=== PATIENT | female | born 1950 | race Caucasian/White ===

== ENCOUNTER 2021-01-06 13:08 | Outpatient (CLI) | payer MEDICARE, SELFPAY ==
--- NOTE | ~2021-01-06 | DEXA_ITS ---
Bone Density Report Name: Sarah Curry V Age: 70 Sex: Female Ethnicity: White Date of : 1950 Indication: osteopenia; parental hip fracture; height loss; prior fracture; postmenopausal Referring Provider: MAULIK MOONEY Study: Bone densitometry was performed. Exam Date: January 06, 2021 Accession number: [id number] Bone Density: Region BMD T-score Z-score Classification AP Spine (L1-L4) 0.741 -2.8 -0.7 Osteoporosis Femoral Neck (Left) 0.641 -1.9 -0.1 Osteopenia Total Hip (Left) 0.881 -0.5 1.0 Normal Total Hip Bilateral Avg 0.864 -0.7 0.8 Normal Femoral Neck (Right) 0.652 -1.8 0.0 Osteopenia Total Hip (Right) 0.847 -0.8 0.7 Normal World Health Organization criteria for BMD impression classify patients as: Normal (T-score at or above -1.0), Osteopenia (T-score between -1.0 and -2.5), or Osteoporosis (T-score at or below -2.5). 10-year Fracture Risk: FRAX not reported because: Some T-score for Spine Total or Hip Total or Femoral Neck at or below -2.5 Previous Exams: Region Exam Age BMD T-score BMD Change BMD Change Date g/cm2 vs Baseline vs Previous AP Spine(L1-L4) 01/06/2021 70 0.741 -2.8 -0.054(-6.7%)# -0.050(-6.3%)* 11/16/2017 67 0.792 -2.3 -0.003(-0.4%)# 0.010(1.3%) 10/25/2015 64 0.781 -2.4 -0.014(-1.7%)# -0.014(-1.7%)# 05/30/2012 61 0.795 -2.3 Total Hip(Left) 01/06/2021 70 0.881 -0.5 0.072(8.9%)# 0.068(8.3%)* 11/16/2017 67 0.814 -1.1 0.004(0.5%)# 0.008(1.0%) 10/25/2015 64 0.805 -1.1 -0.004(-0.5%)# -0.004(-0.5%)# 05/30/2012 61 0.809 -1.1 Total Hip(Right) 01/06/2021 70 0.847 -0.8 0.033(4.0%)# 0.080(10.4%)* 11/16/2017 67 0.767 -1.4 -0.047(-5.8%)# -0.058(-7.0%)* 10/25/2015 64 0.825 -1.0 0.010(1.3%)# 0.010(1.3%)# 05/30/2012 61 0.814 -1.0 *Denotes significance at 95% confidence level, LSC for AP Spine = 0.022 g/cm2, LSC for Total Hip = 0.027 g/cm2 Clinical Information Provided by Patient: Has had a low trauma fracture Parent has had a hip fracture Has used the following medications: Vitamin D, Calcium Patient maximum height was 65 Menopause Age: 52 Drinks caffeinated beverages Onset of menses at age 12 Number of children 1 Impression: The patient has established osteoporosis, based on the Total Spine T-score and the existence of a prior fracture. The patient has risk factors, including: parental hip fracture, previous fracture. The BMD for the AP Spine(L1-L4
== END 2021-01-06 13:09 | disposition home or self-care (01) ==
PROVIDERS: Family Provider Family Medicine Adolescent Medicine; PCP Family Medicine Adolescent Medicine; Visit Provider Obstetrics & Gynecology
DX: M85.89 Other specified disorders of bone density and structure, multiple sites (principal); M81.0 Age-related osteoporosis without current pathological fracture
CPT/HCPCS: 77080

== ENCOUNTER 2022-02-26 10:28 | Outpatient (CLI) | payer MEDICARE, SELFPAY ==
[2022-02-26 11:30] LABS: Vitamin D 25 Hydroxy 49.1 ng/mL
== END 2022-02-26 10:29 | disposition home or self-care (01) ==
PROVIDERS: PCP Family Medicine Adolescent Medicine; Visit Provider Obstetrics & Gynecology
DX: M81.0 Age-related osteoporosis without current pathological fracture (principal)
CPT/HCPCS: 36415; 82306

== ENCOUNTER → 2022-10-14 10:30 | Outpatient (CLI) | payer MEDICARE, SELFPAY ==
--- NOTE | ~2022-10-14 | US_ITS ---
EXAMINATION: US pelvic complete w TV DATE: 10/14/2022 11:05 INDICATION: ABN DISCHARGE, FAM HX OF [place] CA , history of right oophorectomy for teratoma. TECHNIQUE: Multiple transabdominal and endovaginal sonographic images of the pelvis were obtained. COMPARISON: None. FINDINGS: Uterus: 5.3 x 2.3 x 2.8 cm. Endometrium is somewhat poorly visualized and partially obscured by adjac ent air-filled loop of bowel. Endometrial complex measures 2 mm. Right Ovary: Not visualized partially obscured by bowel gas. Left Ovary: Not well visualized, no adnexal mass. There is no free fluid in the pelvis. IMPRESSION: Limited examination. Consider evaluation with pelvic MR. Reviewed, dictated and finalized at location [facility]
== END ==
PROVIDERS: PCP Obstetrics & Gynecology; Visit Provider Obstetrics & Gynecology
DX: N89.8 Other specified noninflammatory disorders of vagina (principal)
CPT/HCPCS: 76830; 76856

== ENCOUNTER 2025-03-23 00:55 | Day surgery (SDC) | payer MEDICARE, SELFPAY ==
[2025-03-16 13:22] VITALS: BMI 24.0
--- OUTSIDE RECORDS SUMMARY | 2025-03-23 00:58 | XMS_ITS | Encounter Summary ---
Author Organization [facility] Address [address] [place] [address] Care Team Providers Care Social Sciences Department Chair Name Role Phone Tone Rebolledo MD Primary Care Prov ider Reason for Visit * Diagnostic Imaging (Routine) - Pending Review Specialty Diagnoses / Procedures Referred By Brad ortez Referred To Contact Procedures Breast Imaging Screening Outside Reference Jacobo Resendiz MD Phone: tel: fax: Referral ID Status Reason Start Date Expiration Date V isits Requested Visits Authorized [id number] Pending Review 01/17/2025 02/16/2026 1 1 Encounter Details Date Type Department Care Team (Late st Contact Info) Description 02/28/2021 Hospital Encounter [facility] [id number] [place] [id number] Social History Tobacco Use Types Packs/Day Years Used Date Smoking Tobacco: Former Cigarettes 0.1 10 0 11/08/1970 - 11/08/1980 Smokeless Tobacco: Never AUDIT-C Answer Date Recorded Q1: How often do you have a drink containing alc ohol? 2-3 times a week 09/11/2022 Q2: How many drinks containi ng alcohol do you have on a typical day when you are drinking? 1 or 2 09/11/2022 Q3: How often do you have si x or more drinks on one occasion? Never 09/11/2022 PHQ-2 Answer Date Recorded PHQ-2 Total Score (If total score is 3 or more points, staff should administer the PHQ-9) 0 12/28/2024 Comments No Sex and Gender Information Value Date Recorded Sex Assigned at Not on file Legal Sex Female 9:54 AM [employer]ERTY CONSULT[employer] Gender Identity Not on file Sexual Orientation Not on file documented as of this encounter Functional Status * Audit-C Score Answer Date of Assessment Author 3 09/11/2022 10:58 AM TENAT Ameena Huff MD * Question Answer Date of Assessment Author Q1: How often do you have a drink containing alcohol? 2-3 times a week 09/11/2022 10:58 AM Ameena Meredith MD Q2: How many drinks containing alcohol do you have on a typical day when you are drinking? 1 or 2 09/11/2022 10:58 AM TENAT Ameena Mike MD Q3: How often do you have six or more drinks on one occasion? Never 09/11/2022 10:58 AM Ameena Meredith MD documented as of this encounter Plan of Treatment Not on file documented as of this encounter Procedures Procedure Name Priority Date/Time Associated Diagnosis Comments BREAST IMAGING MG SCREENING OUTSIDE REFERENCE Routine 02/28/2021 12:00 AM CDT documented in this encounter Results * Breast Imaging Screening Outside Reference (02/28/2021 12:00 AM CDT) Impressions [facility] - 01/17/2025 1:36 PM CDT These images are for Reference purposes only and have not been reviewed by [facility]. There will be no report generated by a [facility] Radiologist. Narrative [facility] - 01/17/2025 1:36 PM CDT EXAMINATION: Images For Reference Purposes Only us Jacobo Resendiz MD IMG MAMMO PROCEDURES Fi nal Result [facility] documented in this encounter Visit Diagnoses Not on filedocumented in this encounter Care Teams Social Sciences Department Chair Relationship Specialty Start Date End Date Tone Rebolledo MD [address] [place] [address] PCP - General 03/08/17 09/02/21 documented as of this encounter
--- OUTSIDE RECORDS SUMMARY | 2025-03-23 00:58 | XMS_ITS | Referral Summary ---
Author Organization [facility] Address [address] [place] [address] Care Team Providers Care Animal Care Worker Name Role Phone Jacobo Resendiz MD Primary Care Provider Jerica Wheeler MD Unavailable [phone] Leon Chou MD Unavailable Encounters Date Type Department Care Team Description 02/07/2025 10:30 AM CDT Infusion [facility] [address] [place] [address] Age-related osteoporosis without current pathological fracture (Primary Dx) 01/22/2025 Results Follow-Up [facility] [place] [address] [place] [address] Jacobo Resendiz MD 01/12/2025 Telephone [facility] [address] Office [address] [place] [id number] Jerica Wheeler MD Treatment Plan Update (New reclast) 01/12/2025 10:54 AM HAND CLOTH EXAMINER - 01/12/2025 11:59 PM HAND CLOTH EXAMINER Hospital Encounter [facility] [address] [place] [address] [address] [place] [address] Screening mammogram, encounter for Discharge Disposition: Discharge to home or self care 01/12/2025 11:30 AM HAND CLOTH EXAMINER Clinical Support [address] [place] [address] Age-related osteoporosis without current pathological fracture 01/12/2025 12:00 PM HAND CLOTH EXAMINER Office Visit [address] [place] [address] Jerica Wheeler MD Age-related osteoporosis without current pathological fracture (Primary Dx); Bone loss 12/29/2024 Results Follow-Up [facility] Primary Care at [address] [address] Jacobo Resendiz MD 12/28/2024 9:29 AM HAND CLOTH EXAMINER - 12/28/2024 11:59 PM HAND CLOTH EXAMINER Hospital Encounter [address] [address] Age-related osteoporosis without current pathological fracture; Preventative health care; Need for hepatitis B screening test Discharge Disposition: Discharge to home or self care 12/28/2024 9:30 AM HAND CLOTH EXAMINER Lab [facility] Outpatient Lab at [address] [address] Preventative health care (Primary Dx) 12/28/2024 8:30 AM HAND CLOTH EXAMINER Office Visit [facility] Primary Care at [address] [address] Jacobo Resendiz MD Preventative health care (Primary Dx); Age-related osteoporosis without current pathological fracture; Mixed stress and urge incontinence; Bilateral hearing loss, unspecified hearing loss type; History of colon polyps; Need for hepatitis B screening test from Last 3 Months Allergies Active Allergy Reactions Criticality Noted Date Comments Nalidixic Acid Itching Low 09/03/2021 Sulfa (Sulfonamide Antibiotics) Itching Low Medications ibandronate (BONIVA) 150 mg tabletIndications :Age-related osteoporosis without current pathological fracture Take 1 tablet (150 mg total) by mouth every 30 (thirty) days Take in AM with glass of water prior to food, don't lie down for 30 minutes. 3 tablet 4 01/19/2024 Active CALCIUM ORAL Take by mouth Active cholecalciferol, vitamin D3, (VITAMIN D3 ORAL) Take 1,000 Units by mouth Active Active Problems Problem Noted Date Diagnosed Date Preventative health care 12/28/2024 Assessment & Plan (12/29/2024 9:35 AM HAND CLOTH EXAMINER): - New or chronic worsening conditions: no significant acute issues on this visit - Mental health: no significant psychiatric/mental health conditions affecting her day to day functioning - Dental health: Recommend regular dental care and cleaning. Discussed importance of regular tooth brushing, flossing, and dental visits. - Nutrition: Recommend moderation in sodium/caffeine intake, saturated fat and cholesterol, caloric balance, sufficient intake of fresh fruits, vegetables - Exercise: Recommend to exercise at least 30 minutes moderate to vigorous exercise most days of the week. (minimum 150 minutes weekly) - Immunizations: Age and sex appropriate immunizations reviewed and offered - Cervical Cancer screening: not indicated - Breast Cancer screening: due, scheduled for 01/2025 - Colon cancer screening: past due, referral placed to GI for colonoscopy - Lung cancer screening: not indicated - Bone desnity/osteoporosis screening:Up to date, next scheduled for 01/2025 - control: post-menopausal History of colon polyps 12/28/2024 Assessment & Plan (12/29/2024 9:35 AM HAND CLOTH EXAMINER): - past due for repeat colonoscopy - last Colonosocpy was 10/2021, had - due for repeat in 3 years so past due - referral placed to GI for repeat colonoscopy Colonoscopy 10/2021 Impression: - One 20 mm polyp in the ascending colon, removed with a hot snare. Resected and retrieved. Clip (MR conditional) was placed. - One 5 mm polyp in the ascending colon, removed with a cold snare. Resected and retrieved. - Non-bleeding internal hemorrhoids. Recommendation: - Repeat colonoscopy in 3 years for surveillance. Bilateral hearing loss 12/28/2024 Assessment & Plan (12/28/2024 11:45 AM HAND CLOTH EXAMINER): - chronic condition - wears heairng aids in both ears Mixed stress and urge incontinence 12/28/2024 Assessment & Plan (12/29/2024 9:36 AM HAND CLOTH EXAMINER): - chronic condition, mild - has stress incontinence to cough/sneeze and some urgency - managed by self, does not affect quality of life significantly -Consider referral to urology or pelvic floor physical therapy if symptoms worsen or impact quality of life. Age-related osteoporosis wit hout current pathological fracture 09/11/2022 Overview (12/28/2024): Follows with Bone health Assessment & Plan (12/28/2024 8:59 AM HAND CLOTH EXAMINER): - chronic condition - follows with Bone health - she had osteopenia, did not want to take medications for many years and eventually got Osteoporosis, finally decided to take Boniva - then she saw Bone health speciality and has been on Ibandronate since then - currently on Boniva 150 mg monthly - she is hoping to get off the medication soon - last DEXA 09/2023 and has repeat scheduled for 01/2025 - continue current management per bone health specility Resolved Problems Problem Noted Date Diagnosed Date Resolved Date Fever 03/24/2024 12/28/2024 Assessment & Plan (03/24/2024 7:29 PM CDT): Unknown origin. UA negative for leuks /nit, small blood, sp gr 1.030, consider dehydration. Patient advised to go to nearest ER. She declined transport, states that her , whom is waiting in the car, would take her. Unable to send UCx because patient had low volume when we collected her urine. Borderline high cholesterol 09/11/2022 12/28/2024 Immunizations Immunization Administration Dates Next Due COVID-19 mRNA (InDMusic) 0.3 m L (30 mcg) vaccine (12 years and up) 09/09/2024 Influenza, Quadrivalent, Hig h Dose, Preservative Free, Intrr 08/18/2023,08/08/2022,07/31/2021,08/28 Influenza, Trivalent, High D ose, Split, Preservative Free, Intramuscular 08/15/2019,11/15/2017 Influenza, Trivalent, Preser vative Free, Intramuscular 09/27/2016,11/28/2013 Influenza, Unspecified 09/09/2024 Pneumococcal Conjugate PCV 13 09/27/2016 Pneumococcal Polysaccharide PPV23 11/15/2017 RSV Vaccine, Pref, Recombina nt, Subunit, Adjuvanted, PF, IM (Arexvy) 08/18/2023 Tdap 12/01/2021 ZOSTER LIVE 12/12/2016 ZOSTER Recombinant 10/17/2019,08/17/2019, 019 Social History Tobacco Use Types Packs/Day Years Used Date Smoking Tobacco: Former Cigarettes 0.1 10 0 11/08/1970 - 11/08/1980 Smokeless Tobacco: Never Tobacco Cessation:Counseling Given: Not Answered AUDIT-C Answer Date Recorded Q1: How often [...] on file Legal Sex Female 9:54 AM HAND CLOTH EXAMINER Gender Identity Not on file Sexual Orientation Not on file Last Filed Vital Signs Vital Sign Reading Time Taken Comments Blood Pressure 106/85 02/07/2025 10:40 AM CDT Pulse 60 02/07/2025 10:40 AM CDT Temperature 36.4 C (97.5 F) 02/07/2025 10:40 AM CDT Respiratory Rate 18 02/07/2025 10:40 AM CDT Oxygen Saturation 96% 02/07/2025 10:40 AM CDT Inhaled Oxygen Concentration - - Weight 64.1 kg (141 lb 6.4 oz) 01/12/2025 11:51 AM HAND CLOTH EXAMINER Height 162.6 cm (5' 4 ) 01/12/2025 11:51 AM HAND CLOTH EXAMINER Body Mass Index 24.27 01/12/2025 11:51 AM HAND CLOTH EXAMINER Plan of Treatment Not on file Procedures Procedure Name Priority Date/Time Associated Diagnosis Comments DEXA TBS AXIAL SKELETON BONE DENSITY 1 OR MORE SITES Schedule Routine, Read Routine (OP Routine) 01/12/2025 11:50 AM HAND CLOTH EXAMINER Age-related osteoporosis without current pathological fracture SCREENING MAMMOGRAM BILATERAL W SHUKRI Schedule Routine, Read Routine (OP Routine) 01/12/2025 11:17 AM HAND CLOTH EXAMINER Screening mammogram, encounter for EGFR Routine 12/28/2024 9:29 AM HAND CLOTH EXAMINER Preventative health care DIFFERENTIAL AUTO Routine 12/28/2024 9:2 9 AM HAND CLOTH EXAMINER Preventative health care CBC WITH AUTO DIFFERENTIAL Routine 12/28/2024 9:29 AM HAND CLOTH EXAMINER Preventative health care COMPREHENSIVE METABOLIC PANEL Routine 12/28/2024 9:29 AM HAND CLOTH EXAMINER Preventative health care THYROID FUNCTION CASCADE Routine 12/28/2024 9:29 AM HAND CLOTH EXAMINER Age-related osteoporosis without current pathological fracture LIPID PANEL Routine 12/28/2024 9:29 AM HAND CLOTH EXAMINER Preventative health care VITAMIN D 25 HYDROXY Routine 12/28/2024 9:29 AM HAND CLOTH EXAMINER Age-related osteoporosis without current pathological fracture HEPATITIS B SURFACE ANTIGEN Routine 12/28/2024 9:29 AM HAND CLOTH EXAMINER Need for hepatitis B screening test HEPATITIS B CORE ANTIBODY, TOTAL Routine 12/28/2024 9:29 AM HAND CLOTH EXAMINER Need for hepatitis B screening test HEPATITIS B SURFACE ANTIBODY (IMMUNE STATUS) Routine 12/28/2024 9:29 AM HAND CLOTH EXAMINER Need for hepatitis B screening test HEPATITIS C ANTIBODY Routine 09/14/2022 11:20 AM HAND CLOTH EXAMINER Medicare annual wellness visit, subsequent Encounter for hepatitis C screening test for low risk patient COLONOSCOPY 10/22/2021 10:54 AM HAND CLOTH EXAMINER from Last 3 Months or Most Recently Relevant to Health Maintenance Results * Dexa TBS Axial Skeleton Bone Density 1 or more sites (01/12/2025 11:50 AM HAND CLOTH EXAMINER) Anatomical Region Laterality Modality Wrist, Body N/A Radiographic Denise ging Narrative 01/14/2025 12:31 PM CDT Patient Name: Sarah Curry Date of : 1950 Date of scan: 01/12/2025 Bone mineral density was performed on a [employer] Discovery Densitometer. Based on machine cross-calibration and precision studies the least significant changes of this densitometer is 0.024 g/cm2 at the spine, 0.020 g/cm2 at the total proximal femur, and 0.014g/cm2 at the forearm. HISTORY: This is a 74 y.o. postmenopausal female with a history of osteoporosis. She reports that she quit smoking about 44 years ago. Her smoking use included cigarettes. She started smoking about 54 years ago. She has a 1 pack-year smoking history. She has never used smokeless tobacco. Currently on treatment with calcium, vitamin D, and ibandronate (Boniva). INDICATIONS: Menopause status, treatment monitoring, and history of osteoporosis. FINDINGS: BONE MINERAL DENSITY OF THE LUMBAR SPINE Bone Mineral Density (BMD) of the lumbar spine was measured from L1-L4 and the average density was calculated to be 0.760 gm/cm2. This corresponds to a T-score (standard deviations from the mean of young adults) of -2.6. When compared to the previous study of 10/06/2023 there has been a -0.032 gm/cm (-4.1%) decrease in bone density that is considered significant. BONE MINERAL DENSITY OF THE PROXIMAL FEMUR Bone Mineral Density (BMD) of the left hip total was found to be 0.824 gm/cm2. This corresponds to a T-score standard deviations from the mean of young adults of -1.0. Femoral neck is 0.660 gm/cm2 with a T-score (standard deviations from the mean of young adults) of -1.7. When compared to the previous study of 10/06/2023 there has been a -0.033 gm/cm (-3.9%) decrease in bone density that is considered significant. SUMMARY: Bone mineral density shows evidence of osteoporosis and marked increase risk of fracture. There has been a significant decrease in bone density since previous measurement. The lumbar spine Trabecular Bone Score is 1.288 which suggests partially degraded bone microarchitecture compared to the general population. Final decisions regarding diagnostic or therapeutic recommendations should include BMD, TBS, additional clinical risk factors as well the clinical context of the patient. Please see attached TBS results for further details. ADDITIONAL COMMENTS: Postmenopausal Women and Men Over 50: Diagnostic criteria: Osteoporosis: BMD at or below -2.5 T-score; Osteopenia (low bone mass): BMD between -1.0 and -2.5 T-score. If the patient has a history of a fragility fracture, a fracture that occurred with trauma equivalent to a fall from a standing position or less, then the diagnosis is osteoporosis regardless of bone density. The history and data sections of the bone mineral density scan were prepared by Kacey Taylor(Horace) [employer] who is accredited by the International Society of Clinical Densitometry. The overall patient assessment and scan interpretation were performed by Jerica Wheeler M.D. who is certified by the International Society of Clinical Densitometry. [id number] Jerica Wheeler MD IMG DXA PROCEDURES Final Resu lt * Screening Mammogram Bilateral W Shukri (01/12/2025 11:17 AM HAND CLOTH EXAMINER) Anatomical Region Laterality Modality Breast Bilateral Mammography Narrative 01/18/2025 9:04 AM CDT Mammogram Technique: Bilateral Digital Breast Tomosynthesis, Bilateral C-view 2D Screening mammogram. Views obtained: bilateral craniocaudal and bilateral mediolateral oblique. Computer Aided Detection was performed. Mammogram Findings: The present examination has been compared to prior imaging studies performed at [facility] on 02/28/2021, 03/16/2022 and 03/22/2023. The breasts are heterogeneously dense, which may obscure small masses. There is no suspicious abnormality in either breast. Impression: There is no mammographic evidence of malignancy. Annual screening mammography is recommended. If supplemental screening is desired, breast MRI would be recommended in this patient with heterogeneously dense breasts. OVERALL FINAL ASSESSMENT: BI-RADS CATEGORY 1: Negative. Procedure Note Araceli Valadez MD - 01/18/2025 Mammogram Technique: Bilateral Digital Breast Tomosynthesis, Bilateral C-view 2D Screening mammogram. Views obtained: bilateral craniocaudal and bilateral mediolateral oblique. Computer Aided Detection was performed. Mammogram Findings: The present examination has been compared to prior imaging studies performed at [facility] on 02/28/2021, 03/16/2022 and 03/22/2023. The breasts are heterogeneously dense, which may obscure small masses. There is no suspicious abnormality in either breast. Impression: There is no mammographic evidence of malignancy. Annual screening mammography is recommended. If supplemental screeningis desired, breast MRI would be recommended in this patient with heterogeneously dense breasts. OVERALL FINAL ASSESSMENT: BI-RADS CATEGORY 1: Negative. us Self Screening Mammogram IMG MAMMO PROCEDURES Fi nal Result * eGFR (12/28/2024 9:29 AM HAND CLOTH EXAMINER) eGFR 85 >=60 mL/min/1. 73 m2 Comment: Interpretive Data Reference Interval Normal >/= 90 mL/min/1.73m2 Mildly decreased* 60 - 89 mL/min/1.73m2 Mildly to moderately decreased 45 - 59 mL/min/1.73m2 Moderately to severely decreased 30 - 44 mL/min/1.73m2 Severely decreased 15 - 29 mL/min/1.73m2 Kidney Failure < 15 mL/min/1.73m2 *Relative to young adult level Estimated glomerular filtration rate is determined by the 2020 CKD-EPI equation recommended by the National Kidney Foundation (A Unifying Approach to GFR Estimation: Recommendations of the NKF-ASK Task Force on Reassessing the Inclusion of Race in Diagnosing Kidney Disease, JASN 2020). The CKD-EPI equation should not be used for patients with unstable renal function and has not been validated in children and those over 70. Current interpretive data was last reviewed 2021. Blood 12/28/2024 9:29 AM HAND CLOTH EXAMINER 12/28/2024 2:48 PM HAND CLOTH EXAMINER us Jacobo Resendiz MD LAB BLOOD ORDERABLES Fi nal Result [address] [id number] [address] [place] [address] * Differential, auto (12/28/2024 9:29 AM HAND CLOTH EXAMINER) Neutrophil abs 3.7 1.5 - 6.5 K/cumm Imm gran abs 0.1 0.0 - 0.1 K/cumm [facility] Lymphocyte abs 2.3 0.8 - 3.3 K/cumm [facility] Monocyte abs 0.5 0.2 - 0.8 K/cumm [facility] Eosinophil abs 0.2 0.0 - 0.5 K/cumm [facility] Basophil abs 0.1 0.0 - 0.1 K/cumm [facility] Neutrophil pct 53.7 % [facility] Comment: Interpretive Data Percent cell count reference ranges are not reported, since discordance with absolute values may lead to misinterpretation of CBC data. Current Interpretive Data was last revised on 2018. Imm gran pct 1.2 % [facility] Comment: Interpretive Data Percent cell count reference ranges are not reported, since discordance with absolute values may lead to misinterpretation of CBC data. Current Interpretive Data was last revised on 2018. Lymphocyte pct 33.9 % [facility] Comment: Interpretive Data Percent cell count reference ranges are not reported, since discordance with absolute values may lead to misinterpretation of CBC data. Current Interpretive Data was last revised on 2018. Monocyte pct 7.1 % [facility] Comment: Interpretive Data Percent cell count reference ranges are not reported, since discordance with absolute values may lead to misinterpretation of CBC data. Current Interpretive Data was last revised on 2018. Eosinophil pct 2.8 % [facility] Comment: Interpretive Data Percent cell count reference ranges are not reported, since discordance with absolute values may lead to misinterpretation of CBC data. Current Interpretive Data was last revised on 2018. Basophil pct 1.3 % [facility] Comment: Interpretive Data Percent cell count reference ranges are not reported, since discordance with absolute values may lead to misinterpretation of CBC data. Current Interpretive Data was last revised on 2018. Blood 12/28/2024 9:29 AM HAND CLOTH EXAMINER 12/28/2024 2:44 PM HAND CLOTH EXAMINER Jacobo Resendiz MD LAB [place] [address] [place] [address] * Thyroid Function [place] (12/28/2024 9:29 AM HAND CLOTH EXAMINER) Pathologist [facility] TSH 3.50 0.30 - 4.20 mcIUnit/mL Blood 12/28/2024 9:29 AM HAND CLOTH EXAMINER 12/28/2024 2:44 PM HAND CLOTH EXAMINER Jacobo Resendiz MD LAB BLOOD ORDERABLES Fi nal Result Performing Organization Address [facility] [place] [address] [facility] [place] [address] * (ABNORMAL) CBC with auto differential (12/28/2024 9:29 AM HAND CLOTH EXAMINER) Pathologist [facility] WBC 6.9 3.8 - 9.9 K/cumm Hgb 13.7 11.9 - 15.5 g/dL [facility] Hct 42.9 35.6 - 45.5 % [facility] Plt 451(H) 150 - 400 K/cumm [facility] MPV 9.9 9.1 - 12.3 fL [facility] RBC 4.36 3.90 - 5.20 M/cumm [facility] MCV 98.4(H) 81.3 - 96.4 fL [facility] MCH 31.4 27.1 - 33.3 pg [facility] MCHC 31.9(L) 32.3 - 35.7 g/dL [facility] CH RDW CV 12.3 11.1 - 14.9 % [facility] RDW SD 44.5 35.7 - 48.1 fL [facility] NRBC abs 0.00 0.00 - 0.01 K/cumm [facility] Blood 12/28/2024 9:29 AM HAND CLOTH EXAMINER 12/28/2024 2:44 PM HAND CLOTH EXAMINER Jacobo Resendiz MD LAB BLOOD ORDERABLES Fi nal Result Performing Organization Address [facility] [place] [address] [facility] [place] [employer] [address] * Hepatitis B core antibody, total Blood (12/28/2024 9:29 AM HAND CLOTH EXAMINER) Pathologist [facility] Hep B core IgG/IgM Nonreactive Nonreactive Comment:Testing performed by : [facility], [address] [place]., [address] Blood 12/28/2024 9:29 AM HAND CLOTH EXAMINER 12/29/2024 9:42 AM HAND CLOTH EXAMINER Jacobo Resendiz MD LAB MICROBIOLOGY - GENE RAL ORDERABLES Final Result Performing Organization Address [facility] [place] [address] [address] [place] [address] * Vitamin D 25 hydroxy (12/28/2024 9:29 AM HAND CLOTH EXAMINER) Pathologist [facility] Vitamin D 25-OH 36 30 - 80 ng/mL Blood 12/28/2024 9:29 AM HAND CLOTH EXAMINER 12/28/2024 2:44 PM HAND CLOTH EXAMINER Jacobo Resendiz MD LAB BLOOD ORDERABLES Fi nal Result Performing Organization Address [facility] [place] [address] [address] [place] [address] * Hepatitis B surface antibody (immune status) Blood (12/28/2024 9:29 AM HAND CLOTH EXAMINER) Pathologist [facility] HBsAb (immune status) Nonreactive Comment: Interpretive Data Nonreactive: This result is consistent with a lack of immunity to Hepatitis B Virus when used in the setting of routine screening. Equivocal: The immune status of the individual should be further assessed, if appropriate, after consideration of clinical status, risk factors, and additional diagnostic information. Reactive: This result is consistent with immunity to Hepatitis B Virus when used in the setting of routine screening. Current interpretive data was last revised on 20. Blood 12/28/2024 9:29 AM HAND CLOTH EXAMINER 12/28/2024 2:44 PM HAND CLOTH EXAMINER Jacobo Resendiz MD LAB MICROBIOLOGY - GENE RAL ORDERABLES Final Result Performing Organization Address City/[facility] de Phone Number F[place]IAN [address] [facility] [place] [employer] [address] * Hepatitis B Surface Antigen Blood (12/28/2024 9:29 AM HAND CLOTH EXAMINER) HepBsAg Nonreactive Nonreactive Blood 12/28/2024 9:29 AM HAND CLOTH EXAMINER 12/28/2024 2:44 PM HAND CLOTH EXAMINER Jacobo Resendiz MD LAB MICROBIOLOGY - GENE RAL ORDERABLES Final Result Performing Organization Address [facility] [place] [address] [place] [address] * Lipid panel (12/28/2024 9:29 AM HAND CLOTH EXAMINER) Cholesterol 198 30 - 199 mg/dL Comment: Interpretive Data Ages < or = 19 years Acceptable: <170 mg/dL Borderline high: 170-199 mg/dL High: >or= 200 mg/dL Ages > or = 20 years Desirable: <200 mg/dL Borderline high: 200-239 mg/dL High: >or= 240 mg/dL Literature References: 1. Expert Panel on Integrated Guidelines for Cardiovascular Health and Risk Reduction in Children and Adolescents. Pediatrics 2011;128:S213 2. NCEP Expert Panel. Circulation 2004;110:227 Current Interpretive Data was last revised on 2018. Triglycerides 47 <=149 mg/dL FABIAN NG Comment: Interpretive Data Ages < or = 9 years Acceptable: <75 mg/dL Borderline high: 75-99 mg/dL High: >or= 100 mg/dL Ages 10 to 20 years Acceptable: <90 mg/dL Borderline high: 90-129 mg/dL High: >or= 130 mg/dL Ages > or = 20 years Desirable: <150 mg/dL Borderline high: 150-199 mg/dL High: 200-499 mg/dL Very high: >or= 499 mg/dL Literature References: 1. Expert Panel on Integrated Guidelines for Cardiovascular Health and Risk Reduction in Children and Adolescents. Pediatrics 2011;128:S213 2. NCEP Expert Panel. Circulation 2004;110:227 Current Interpretive Data was last revised on 2018. HDL 66 >=40 mg/dL FABIAN NG Comment: Interpretive Data Ages < or = 19 years Acceptable: >45 mg/dL Borderline low: 40-45 mg/dL Low: <40 mg/dL Ages > or = 20 years Desirable: >or= 60 mg/dL Low: <40 mg/dL Literature References: 1. Expert Panel on Integrated Guidelines for Cardiovascular Health and Risk Reduction in Children and Adolescents. Pediatrics 2011;128:S213 2. NCEP Expert Panel. Circulation 2004;110:227 Current Interpretive Data was last revised on 2018. LDL, calculated 123 <=129 mg/dL FABIAN NG Comment: Interpretive Data Ages < or = 19 years Acceptable: <110 mg/dL Borderline high: 110-129 mg/dL High: >or= 130 mg/dL Ages > or = 20 years Optimal: <100 mg/dL Near optimal: 100-129 mg/dL Borderline high: 130-159 mg/dL High: >160 mg/dL Calculated using the Suhail LDL-C estimating equation. This equation was implemented on 2024. Prior to this date LDL-C was estimated using the Friedewald equation. Literature References: 1. Expert Panel on Integrated Guidelines for Cardiovascular Health and Risk Reduction in Children and Adolescents. Pediatrics 2011;128:S213 2. NCEP Expert Panel. Circulation 2004;110:227 3. Suhail Flood. ANA Cardiol. 2019March 08;5(5):540-548. doi: 10.1001/jamacardio.2020.0013 Current Interpretive Data was last revised on 2024. Non-HDL Cholesterol 132 mg/dL FABIAN NG Comment: Interpretive Data Ages < or = 19 years Acceptable: <120 mg/dL Borderline high: 120-144 mg/dL High: >145 mg/dL Ages > or = 20 years When triglycerides are >200 mg/dL, Non-HDL cholesterol is a secondary target of therapy with treatment goals that are 30 mg/dL greater than the LDL cholesterol target. Literature References: 1. Expert Panel on Integrated Guidelines for Cardiovascular Health and Risk Reduction in Children and Adolescents. Pediatrics 2011;128:S213 2. NCEP Expert Panel. Circulation 2004;110:227 Current Interpretive Data was last revised on 2018. Chol/HDL ratio 3 [facility]ER [facility] Blood 12/28/2024 9:29 AM HAND CLOTH EXAMINER 12/28/2024 2:44 PM HAND CLOTH EXAMINER Narrative [facility]ER [facility] - 12/28/2024 3:30 PM HAND CLOTH EXAMINER Has the patient been fasting for 8 hours or more?->No us Jacobo Resendiz MD LAB BLOOD ORDERABLES Fi nal Result [facility] [address] [address] Department [place] [address] * Comprehensive metabolic panel (12/28/2024 9:29 AM HAND CLOTH EXAMINER) Sodium 139 135 - 145 mmol/L Potassium, pl 4.4 3.3 - 4.9 mmol/L CERNER [facility] Chloride 103 97 - 110 mmol/L [facility] CO2 26 22 - 32 mmol/L [facility] Anion gap 10 2 - 15 mmol/L [facility] BUN 13 6 - 25 mg/dL [facility]ERN[facility] Creatinine 0.74 0.60 - 1.10 mg/dL [facility] Glucose 88 70 - 199 mg/dL [facility]ERNER [facility] Comment: Interpretive Data Fasting glucose >/= 126 mg/dl is diagnostic for diabetes. Fasting is defined as no caloric intake for at least 8 hours. Fasting glucose between 100 mg/dl to 125 mg/dl is diagnostic of prediabetes. In a patient with classic symptoms of hyperglycemia or hyperglycemic crisis, a random glucose >/= 200 mg/dl is diagnostic for diabetes. In the absence of unequivocal hyperglycemia, results should be confirmed by repeat testing. The classification and Diagnosis of Diabetes Diabetes Care 2021; 46: S19-S40. Current interpretive data was last revised 2022. Calcium 9.5 8.5 - 10.3 mg/dL [facility]ER [facility] Bilirubin, total 0.2 0.1 - 1.2 mg/dL [facility] Protein, pl 7.6 6.5 - 8.5 g/dL [facility] Albumin 4.4 3.5 - 5.0 g/dL [facility] Alk phos 65 40 - 130 Units/L [facility] ALT 18 7 - 45 Units/L [facility] AST 30 10 - 45 Units/L [facility] Blood 12/28/2024 9:29 AM HAND CLOTH EXAMINER 12/28/2024 2:44 PM HAND CLOTH EXAMINER Jacobo Resendiz MD LAB BLOOD ORDERABLES Fi nal Result Performing Organization Address [facility] de Phone Number [facility] [address] [address] [place] [address] * Hepatitis C antibody (09/14/2022 11:20 AM HAND CLOTH EXAMINER) Hep C Ab Nonreactive Nonreactive [facility] Comment: Interpretive Data Nonreactive: Antibodies to HCV not detected. Does NOT exclude the possibility of recent exposure to HCV. Equivocal: Equivocal for HCV antibodies. Supplemental molecular testing will be automatically performed to determine infection status in accordance with current CDC screening recommendations. Reactive: Positive for HCV antibodies. This may represent current or past HCV infection. Supplemental molecular testing will be automatically performed to determine current infection status in accordance with current CDC screening recommendations. Interpretive data was last revised on 2020. Blood 09/14/2022 11:2 0 AM HAND CLOTH EXAMINER 09/14/2022 4:26 PM HAND CLOTH EXAMINER Ameena Mike MD LAB MICROBIOLOGY - GEN ERAL ORDERABLES Final Result Performing Organization Address [facility] de Phone Number [facility] [address] [address] [place] [place] [address] * COLONOSCOPY (10/22/2021 10:54 AM HAND CLOTH EXAMINER) Anatomical Region Laterality Modality Other Narrative Procedure Note Early, Natalia Perez MD - 10/22/2021 10:54 AM CST ENDOSCOPY LAB Patient Name: Sarah Curry Procedure Date: 10/22/2021 10:54AM Date of : [id number]|2025-03-23 00:58:00|2025-03-23 00:57:00|XMS_ITS|BKG DANANCYON|External Medical Summaries|[id number]|" Clinical Summary Created on: March 23, 2025 Sarah Curry V : 1950 Sex: Female Author Organization [facility] Address [address] [place] [address] Care Team Providers Care Animal Care Worker Name Role Phone Jacobo Resendiz MD Primary Care Provider Jerica Wheeler MD Unavailable [phone] Leon Chou MD Unavailable [phone] Allergies Active Allergy Reactions Criticality Noted Date Comments Nalidixic Acid Itching Low 09/03/2021 Sulfa (Sulfonamide Antibiotics) Itching Low Medications ibandronate (BONIVA) 150 mg tabletIndications :Age-related osteoporosis without current pathological fracture Take 1 tablet (150 mg total) by mouth every 30 (thirty) days Take in AM with glass of water prior to food, don't lie down for 30 minutes. 3 tablet 4 01/19/2024 Active CALCIUM ORAL Take by mouth Active cholecalciferol, vitamin D3, (VITAMIN D3 ORAL) Take 1,000 Units by mouth Active Active Problems Problem Noted Date Diagnosed Date Preventative health care 12/28/2024 Assessment & Plan (12/29/2024 9:35 AM HAND CLOTH EXAMINER): - New or chronic worsening conditions: no significant acute issues on this visit - Mental health: no significant psychiatric/mental health conditions affecting her day to day functioning - Dental health: Recommend regular dental care and cleaning. Discussed importance of regular tooth brushing, flossing, and dental visits. - Nutrition: Recommend moderation in sodium/caffeine intake, saturated fat and cholesterol, caloric balance, sufficient intake of fresh fruits, vegetables - Exercise: Recommend to exercise at least 30 minutes moderate to vigorous exercise most days of the week. (minimum 150 minutes weekly) - Immunizations: Age and sex appropriate immunizations reviewed and offered - Cervical Cancer screening: not indicated - Breast Cancer screening: due, scheduled for 01/2025 - Colon cancer screening: past due, referral placed to GI for colonoscopy - Lung cancer screening: not indicated - Bone desnity/osteoporosis screening:Up to date, next scheduled for 01/2025 - control: post-menopausal History of colon polyps 12/28/2024 Assessment & Plan (12/29/2024 9:35 AM HAND CLOTH EXAMINER): - past due for repeat colonoscopy - last Colonosocpy was 10/2021, had - due for repeat in 3 years so past due - referral placed to GI for repeat colonoscopy Colonoscopy 10/2021 Impression: - One 20 mm polyp in the ascending colon, removed with a hot snare. Resected and retrieved. Clip (MR conditional) was placed. - One 5 mm polyp in the ascending colon, removed with a cold snare. Resected and retrieved. - Non-bleeding internal hemorrhoids. Recommendation: - Repeat colonoscopy in 3 years for surveillance. Bilateral hearing loss 12/28/2024 Assessment & Plan (12/28/2024 11:45 AM HAND CLOTH EXAMINER): - chronic condition - wears heairng aids in both ears Mixed stress and urge incontinence 12/28/2024 Assessment & Plan (12/29/2024 9:36 AM HAND CLOTH EXAMINER): - chronic condition, mild - has stress incontinence to cough/sneeze and some urgency - managed by self, does not affect quality of life significantly -Consider referral to urology or pelvic floor physical therapy if symptoms worsen or impact quality of life. Age-related osteoporosis wit hout current pathological fracture 09/11/2022 Overview (12/28/2024): Follows with Bone health Assessment & Plan (12/28/2024 8:59 AM HAND CLOTH EXAMINER): - chronic condition - follows with Bone health - she had osteopenia, did not want to take medications for many years and eventually got Osteoporosis, finally decided to take Boniva - then she saw Bone health speciality and has been on Ibandronate since then - currently on Boniva 150 mg monthly - she is hoping to get off the medication soon - last DEXA 09/2023 and has repeat scheduled for 01/2025 - continue current management per bone health specility Resolved Problems Problem Noted Date Diagnosed Date Resolved Date Fever 03/24/2024 12/28/2024 Assessment & Plan (03/24/2024 7:29 PM CDT): Unknown origin. UA negative for leuks /nit, small blood, sp gr 1.030, consider dehydration. Patient advised to go to nearest ER. She declined transport, states that her , whom is waiting in the car, would take her. Unable to send UCx because patient had low volume when we collected her urine. Borderline high cholesterol 09/11/2022 12/28/2024 Encounters Date Type Department Care Team Description 02/07/2025 10:[address] [facility] [address] [place] [address] Age-related osteoporosis without current pathological fracture (Primary Dx) 01/22/2025 Results Follow-Up [facility] Primary Care at [place] [address] [place] [address] Jacobo Resendiz MD 01/12/2025 12:00 PM HAND CLOTH EXAMINER Office Visit [facility] [address] [place] [address] Jerica Wheeler MD Age-related osteoporosis without current pathological fracture (Primary Dx); Bone loss 01/12/2025 11:30 AM HAND CLOTH EXAMINER Clinical Support [facility] [address] [place] [address] Age-related osteoporosis without current pathological fracture 01/12/2025 10:54 AM HAND CLOTH EXAMINER - 01/12/2025 11:59 PM HAND CLOTH EXAMINER Hospital Encounter [facility] [address] [place] [address] Screening mammogram, encounter for Discharge Disposition: Discharge to home or self care 01/12/2025 Telephone [facility] [address] [place] [address] Jerica Wheeler MD Treatment Plan Update (New reclast) 12/29/2024 Results Follow-Up [facility] Primary Care at [address] [address] Jacobo Resendiz MD 12/28/2024 9:30 AM HAND CLOTH EXAMINER Lab [facility] Outpatient Lab at [address] [address] Preventative health care (Primary Dx) 12/28/2024 9:29 AM HAND CLOTH EXAMINER - 12/28/2024 11:59 PM HAND CLOTH EXAMINER Hospital Encounter [address] [address] Age-related osteoporosis without current pathological fracture; Preventative health care; Need for hepatitis B screening test Discharge Disposition: Discharge to home or self care 12/28/2024 8:30 AM HAND CLOTH EXAMINER Office Visit [facility] Primary Care at [address] [address] Jacobo Resendiz MD Preventative health care (Primary Dx); Age-related osteoporosis without current pathological fracture; Mixed stress and urge incontinence; Bilateral hearing loss, unspecified hearing loss type; History of colon polyps; Need for hepatitis B screening test from Last 3 Months Immunizations Immunization Administration Dates Next Due COVID-19 mRNA (InDMusic) 0.3 m L (30 mcg) vaccine (12 years and up) 09/09/2024 Influenza, Quadrivalent, Hig h Dose, Preservative Free, Intrr 08/18/2023,08/08/2022,07/31/2021,08/28 Influenza, Trivalent, High D ose, Split, Preservative Free, Intramuscular 08/15/2019,11/15/2017 Influenza, Trivalent, Preser vative Free, Intramuscular 09/27/2016,11/28/2013 Influenza, Unspecified 09/09/2024 Pneumococcal Conjugate PCV 13 09/27/2016 Pneumococcal Polysaccharide PPV23 11/15/2017 RSV Vaccine, Pref, Recombina nt, Subunit, Adjuvanted, PF, IM (Arexvy) 08/18/2023 Tdap 12/01/2021 ZOSTER LIVE 12/12/2016 ZOSTER Recombinant 10/17/2019,08/17/2019, 019 Surgical History Surgery Date Site/Laterality Comments 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 wa s bilateral Breast cancer Sister Broken bones Neg Hx Hip fracture Neg Hx Kyphosis Neg Hx Osteoporosis Neg Hx Scoliosis Neg Hx Relation Name Status Comments Father Mother Sister Social History Tobacco Use Types Packs/Day Years Used Date Smoking Tobacco: Former Cigarettes 0.1 10 0 11/08/1970 - 11/08/1980 Smokeless Tobacco: Never Tobacco Cessation:Counseling Given: Not Answered AUDIT-C Answer Date Recorded Q1: How often [...] on file Legal Sex Female 9:54 AM HAND CLOTH EXAMINER Gender Identity Not on file Sexual Orientation Not on file Obstetrics History Last Filed Vital Signs Vital Sign Reading Time Taken Comments Blood Pressure 106/85 02/07/2025 10:40 AM CDT Pulse 60 02/07/2025 10:40 AM CDT Temperature 36.4 C (97.5 F) 02/07/2025 10:40 AM CDT Respiratory Rate 18 02/07/2025 10:40 AM CDT Oxygen Saturation 96% 02/07/2025 10:40 AM CDT Inhaled Oxygen Concentration - - Weight 64.1 kg (141 lb 6.4 oz) 01/12/2025 11:51 AM HAND CLOTH EXAMINER Height 162.6 cm (5' 4 ) 01/12/2025 11:51 AM HAND CLOTH EXAMINER Body Mass Index 24.27 01/12/2025 11:51 AM HAND CLOTH EXAMINER Plan of Treatment Health Maintenance Due Date Last Done Comments Colon Cancer Screening-Colonoscopy 10/22/20242020, 11/26/2015 Covid-19 Vaccine (2023-12 5 season) 2025 09/09/2024, 06/05/2023, 08/08/2022, Additional history exists Depression Screening 12/28/2025 12/28/2024, 09/07/2023, 09/11/2022, Additional history exists Fall Risk Assessment 12/28/2025 12/28/2024, 09/07/2023, 09/11/2022, Additional history exists Well Visit 65+ 12/28/2025 12/28/2024, 08/10, 09/11/2022, Additional history exists Breast Cancer Screening-Mammogram 01/12/2026 01/12/2025, 03/22/2023, 03/22/2023, Additional history exists Osteoporosis Screening-Bone Density Scan 01/12/2027 01/12/2025, 10/06/2023 DTaP/Tdap/Td Vaccine (2 - Td or Tdap) 12/01/2031 12/01/2021 Pneumococcal vaccine 65+ Completed 11/15/2017, 09/09 Zoster Vaccine Completed 10/17/2019, 08/08, 08/17/2019, Additional history exists Hepatitis C Screening Completed 09/14/2022 Influenza Vaccine Completed 09/09/2024, , 08/08/2022, Additional history exists Hepatitis B Screening Completed 12/28/2024 Procedures Procedure Name Priority Date/Time Associated Diagnosis Comments DEXA TBS AXIAL SKELETON BONE DENSITY 1 OR MORE SITES Schedule Routine, Read Routine (OP Routine) 01/12/2025 11:50 AM HAND CLOTH EXAMINER Age-related osteoporosis without current pathological fracture SCREENING MAMMOGRAM BILATERAL W SHUKRI Schedule Routine, Read Routine (OP Routine) 01/12/2025 11:17 AM HAND CLOTH EXAMINER Screening mammogram, encounter for EGFR Routine 12/28/2024 9:29 AM HAND CLOTH EXAMINER Preventative health care DIFFERENTIAL AUTO Routine 12/28/2024 9:2 9 AM HAND CLOTH EXAMINER Preventative health care CBC WITH AUTO DIFFERENTIAL Routine 12/28/2024 9:29 AM HAND CLOTH EXAMINER Preventative health care COMPREHENSIVE METABOLIC PANEL Routine 12/28/2024 9:29 AM HAND CLOTH EXAMINER Preventative health care THYROID FUNCTION CASCADE Routine 12/28/2024 9:29 AM HAND CLOTH EXAMINER Age-related osteoporosis without current pathological fracture LIPID PANEL Routine 12/28/2024 9:29 AM HAND CLOTH EXAMINER Preventative health care VITAMIN D 25 HYDROXY Routine 12/28/2024 9:29 AM HAND CLOTH EXAMINER Age-related osteoporosis without current pathological fracture HEPATITIS B SURFACE ANTIGEN Routine 12/28/2024 9:29 AM HAND CLOTH EXAMINER Need for hepatitis B screening test HEPATITIS B CORE ANTIBODY, TOTAL Routine 12/28/2024 9:29 AM HAND CLOTH EXAMINER Need for hepatitis B screening test HEPATITIS B SURFACE ANTIBODY (IMMUNE STATUS) Routine 12/28/2024 9:29 AM HAND CLOTH EXAMINER Need for hepatitis B screening test HEPATITIS C ANTIBODY Routine 09/14/2022 11:20 AM HAND CLOTH EXAMINER Medicare annual wellness visit, subsequent Encounter for hepatitis C screening test for low risk patient COLONOSCOPY 10/22/2021 10:54 AM HAND CLOTH EXAMINER from Last 3 Months or Most Recently Relevant to Health Maintenance Results * Dexa TBS Axial Skeleton Bone Density 1 or more sites (01/12/2025 11:50 AM HAND CLOTH EXAMINER) Anatomical Region Laterality Modality Wrist, Body N/A Radiographic Denise ging Narrative 01/14/2025 12:31 PM CDT Patient Name: Sarah Curry Date of : 1950 Date of scan: 01/12/2025 Bone mineral density was performed on a [employer] Discovery Densitometer. Based on machine cross-calibration and precision studies the least significant changes of this densitometer is 0.024 g/cm2 at the spine, 0.020 g/cm2 at the total proximal femur, and 0.014g/cm2 at the forearm. HISTORY: This is a 74 y.o. postmenopausal female with a history of osteoporosis. She reports that she quit smoking about 44 years ago. Her smoking use included cigarettes. She started smoking about 54 years ago. She has a 1 pack-year smoking history. She has never used smokeless tobacco. Currently on treatment with calcium, vitamin D, and ibandronate (Boniva). INDICATIONS: Menopause status, treatment monitoring, and history of osteoporosis. FINDINGS: BONE MINERAL DENSITY OF THE LUMBAR SPINE Bone Mineral Density (BMD) of the lumbar spine was measured from L1-L4 and the average density was calculated to be 0.760 gm/cm2. This corresponds to a T-score (standard deviations from the mean of young adults) of -2.6. When compared to the previous study of 10/06/2023 there has been a -0.032 gm/cm (-4.1%) decrease in bone density that is considered significant. BONE MINERAL DENSITY OF THE PROXIMAL FEMUR Bone Mineral Density (BMD) of the left hip total was found to be 0.824 gm/cm2. This corresponds to a T-score standard deviations from the mean of young adults of -1.0. Femoral neck is 0.660 gm/cm2 with a T-score (standard deviations from the mean of young adults) of -1.7. When compared to the previous study of 10/06/2023 there has been a -0.033 gm/cm (-3.9%) decrease in bone density that is considered significant. SUMMARY: Bone mineral density shows evidence of osteoporosis and marked increase risk of fracture. There has been a significant decrease in bone density since previous measurement. The lumbar spine Trabecular Bone Score is 1.288 which suggests partially degraded bone microarchitecture compared to the general population. Final decisions regarding diagnostic or therapeutic recommendations should include BMD, TBS, additional clinical risk factors as well the clinical context of the patient. Please see attached TBS results for further details. ADDITIONAL COMMENTS: Postmenopausal Women and Men Over 50: Diagnostic criteria: Osteoporosis: BMD at or below -2.5 T-score; Osteopenia (low bone mass): BMD between -1.0 and -2.5 T-score. If the patient has a history of a fragility fracture, a fracture that occurred with trauma equivalent to a fall from a standing position or less, then the diagnosis is osteoporosis regardless of bone density. The history and data sections of the bone mineral density scan were prepared by Kacey Butler) [employer] who is accredited by the International Society of Clinical Densitometry. The overall patient assessment and scan interpretation were performed by Jerica Wheeler M.D. who is certified by the International Society of Clinical Densitometry. [id number] Jerica Wheeler MD [facility] DXA PROCEDURES Final Resu lt * Screening Mammogram Bilateral W Shukri (01/12/2025 11:17 AM HAND CLOTH EXAMINER) Anatomical Region Laterality Modality Breast Bilateral Mammography Narrative 01/18/2025 9:04 AM CDT Mammogram Technique: Bilateral Digital Breast Tomosynthesis, Bilateral C-view 2D Screening mammogram. Views obtained: bilateral craniocaudal and bilateral mediolateral oblique. Computer Aided Detection was performed. Mammogram Findings: The present examination has been compared to prior imaging studies performed at [facility] on 02/28/2021, 03/16/2022 and 03/22/2023. The breasts are heterogeneously dense, which may obscure small masses. There is no suspicious abnormality in either breast. Impression: There is no mammographic evidence of malignancy. Annual screening mammography is recommended. If supplemental screening is desired, breast MRI would be recommended in this patient with heterogeneously dense breasts. OVERALL FINAL ASSESSMENT: BI-RADS CATEGORY 1: Negative. Procedure Note Araceli Valadez MD - 01/18/2025 Mammogram Technique: Bilateral Digital Breast Tomosynthesis, Bilateral C-view 2D Screening mammogram. Views obtained: bilateral craniocaudal and bilateral mediolateral oblique. Computer Aided Detection was performed. Mammogram Findings: The present examination has been compared to prior imaging studies performed at [facility] on 02/28/2021, 03/16/2022 and 03/22/2023. The breasts are heterogeneously dense, which may obscure small masses. There is no suspicious abnormality in either breast. Impression: There is no mammographic evidence of malignancy. Annual screening mammography is recommended. If supplemental screeningis desired, breast MRI would be recommended in this patient with heterogeneously dense breasts. OVERALL FINAL ASSESSMENT: BI-RADS CATEGORY 1: Negative. us Self Screening Mammogram IMG MAMMO PROCEDURES Fi nal Result * eGFR (12/28/2024 9:29 AM HAND CLOTH EXAMINER) eGFR 85 >=60 mL/min/1. 73 m2 Comment: Interpretive Data Reference Interval Normal >/= 90 mL/min/1.73m2 Mildly decreased* 60 - 89 mL/min/1.73m2 Mildly to moderately decreased 45 - 59 mL/min/1.73m2 Moderately to severely decreased 30 - 44 mL/min/1.73m2 Severely decreased 15 - 29 mL/min/1.73m2 Kidney Failure < 15 mL/min/1.73m2 *Relative to young adult level Estimated glomerular filtration rate is determined by the 2020 CKD-EPI equation recommended by the National Kidney Foundation (A Unifying Approach to GFR Estimation: Recommendations of the NKF-ASK Task Force on Reassessing the Inclusion of Race in Diagnosing Kidney Disease, JASN 2020). The CKD-EPI equation should not be used for patients with unstable renal function and has not been validated in children and those over 70. Current interpretive data was last reviewed 2021. Blood 12/28/2024 9:29 AM HAND CLOTH EXAMINER 12/28/2024 2:48 PM HAND CLOTH EXAMINER us Jacobo Resendiz MD LAB BLOOD ORDERABLES nal Result [facility] [address] [address] Department [place] [address] * Differential, auto (12/28/2024 9:29 AM HAND CLOTH EXAMINER) Neutrophil abs 3.7 1.5 - 6.5 K/cumm Imm gran abs 0.1 0.0 - 0.1 K/cumm [facility] Lymphocyte abs 2.3 0.8 - 3.3 K/cumm [facility] Monocyte abs 0.5 0.2 - 0.8 K/cumm [facility] Eosinophil abs 0.2 0.0 - 0.5 K/cumm [facility] Basophil abs 0.1 0.0 - 0.1 K/cumm [facility] Neutrophil pct 53.7 % [facility] Comment: Interpretive Data Percent cell count reference ranges are not reported, since discordance with absolute values may lead to misinterpretation of CBC data. Current Interpretive Data was last revised on 2018. Imm gran pct 1.2 % [facility] Comment: Interpretive Data Percent cell count reference ranges are not reported, since discordance with absolute values may lead to misinterpretation of CBC data. Current Interpretive Data was last revised on 2018. Lymphocyte pct 33.9 % [facility] Comment: Interpretive Data Percent cell count reference ranges are not reported, since discordance with absolute values may lead to misinterpretation of CBC data. Current Interpretive Data was last revised on 2018. Monocyte pct 7.1 % [facility] Comment: Interpretive Data Percent cell count reference ranges are not reported, since discordance with absolute values may lead to misinterpretation of CBC data. Current Interpretive Data was last revised on 2018. Eosinophil pct 2.8 % [facility] Comment: Interpretive Data Percent cell count reference ranges are not reported, since discordance with absolute values may lead to misinterpretation of CBC data. Current Interpretive Data was last revised on 2018. Basophil pct 1.3 % [facility] Comment: Interpretive Data Percent cell count reference ranges are not reported, since discordance with absolute values may lead to misinterpretation of CBC data. Current Interpretive Data was last revised on 2018. Blood 12/28/2024 9:29 AM HAND CLOTH EXAMINER 12/28/2024 2:44 PM HAND CLOTH EXAMINER Jacobo Resendiz MD LAB BLOOD ORDERABLES Fi nal Result Performing Organization Address City/[facility]/ZIP Co de Phone Number [facility] [address] [place] [address] * Thyroid Function [place] (12/28/2024 9:29 AM HAND CLOTH EXAMINER) Pathologist [facility] TSH 3.50 0.30 - 4.20 mcIUnit/mL Blood 12/28/2024 9:29 AM HAND CLOTH EXAMINER 12/28/2024 2:44 PM HAND CLOTH EXAMINER Jacobo Resendiz MD LAB BLOOD ORDERABLES Fi nal Result Performing Organization Address [facility]/[place]UST Co de Phone Number [facility] [address] [place] [address] * (ABNORMAL) CBC with auto differential (12/28/2024 9:29 AM HAND CLOTH EXAMINER) Pathologist [facility] WBC 6.9 3.8 - 9.9 K/cumm Hgb 13.7 11.9 - 15.5 g/dL [facility] Hct 42.9 35.6 - 45.5 % [facility] Plt 451(H) 150 - 400 K/cumm [facility] MPV 9.9 9.1 - 12.3 fL [facility] RBC 4.36 3.90 - 5.20 M/cumm [facility] MCV 98.4(H) 81.3 - 96.4 fL [facility] MCH 31.4 27.1 - 33.3 pg [facility] MCHC 31.9(L) 32.3 - 35.7 g/dL [facility] RDW CV 12.3 11.1 - 14.9 % [facility] RDW SD 44.5 35.7 - 48.1 fL [facility] NRBC abs 0.00 0.00 - 0.01 K/cumm [facility] Blood 12/28/2024 9:29 AM HAND CLOTH EXAMINER 12/28/2024 2:44 PM HAND CLOTH EXAMINER Jacobo Resendiz MD LAB BLOOD ORDERABLES Fi nal Result Performing Organization Address [facility]/[place] Co de Phone Number [facility] [address] [address] [facility] [place] [address] * Hepatitis B core antibody, total Blood (12/28/2024 9:29 AM HAND CLOTH EXAMINER) Pathologist [facility] Hep B core IgG/IgM Nonreactive Nonreactive Comment:Testing performed by : [facility], [address] [place]., [address] Blood 12/28/2024 9:29 AM HAND CLOTH EXAMINER 12/29/2024 9:42 AM HAND CLOTH EXAMINER Jacobo Resendiz MD LAB MICROBIOLOGY - GENE RAL ORDERABLES Final Result Performing Organization Address [facility]/[place] Co de Phone Number [facility] [address] [address] [place] [address] * Vitamin D 25 hydroxy (12/28/2024 9:29 AM HAND CLOTH EXAMINER) Vitamin D 25-OH 36 30 - 80 ng/mL Blood 12/28/2024 9:29 AM HAND CLOTH EXAMINER 12/28/2024 2:44 PM HAND CLOTH EXAMINER Jacobo Resendiz MD LAB BLOOD ORDERABLES Fi nal Result Performing Organization Address City/[facility]/[place] Co de Phone Number [facility] [address] [address] [place] [address] * Hepatitis B surface antibody (immune status) Blood (12/28/2024 9:29 AM HAND CLOTH EXAMINER) HBsAb (immune status) Nonreactive Comment: Interpretive Data Nonreactive: This result is consistent with a lack of immunity to Hepatitis B Virus when used in the setting of routine screening. Equivocal: The immune status of the individual should be further assessed, if appropriate, after consideration of clinical status, risk factors, and additional diagnostic information. Reactive: This result is consistent with immunity to Hepatitis B Virus when used in the setting of routine screening. Current interpretive data was last revised on 20. Blood 12/28/2024 9:29 AM HAND CLOTH EXAMINER 12/28/2024 2:44 PM HAND CLOTH EXAMINER Jacobo Resendiz MD LAB MICROBIOLOGY - GENE RAL ORDERABLES Final Result Performing Organization Address [facility]/[place] Co de Phone Number [facility] [address] [facility] [place] [address] * Hepatitis B Surface Antigen Blood (12/28/2024 9:29 AM HAND CLOTH EXAMINER) HepBsAg Nonreactive Nonreactive Blood 12/28/2024 9:29 AM HAND CLOTH EXAMINER 12/28/2024 2:44 PM HAND CLOTH EXAMINER Jacobo Resendiz MD LAB MICROBIOLOGY - GENE RAL ORDERABLES Final Result Performing Organization Address [facility]/[place] Co de Phone Number [facility] [address] [place] [place] [address] * Lipid panel (12/28/2024 9:29 AM HAND CLOTH EXAMINER) Cholesterol 198 30 - 199 mg/dL Comment: Interpretive Data Ages < or = 19 years Acceptable: <170 mg/dL Borderline high: 170-199 mg/dL High: >or= 200 mg/dL Ages > or = 20 years Desirable: <200 mg/dL Borderline high: 200-239 mg/dL High: >or= 240 mg/dL Literature References: 1. Expert Panel on Integrated Guidelines for Cardiovascular Health and Risk Reduction in Children and Adolescents. Pediatrics 2011;128:S213 2. NCEP Expert Panel. Circulation 2004;110:227 Current Interpretive Data was last revised on 2018. Triglycerides 47 <=149 mg/dL [facility] Comment: Interpretive Data Ages < or = 9 years Acceptable: <75 mg/dL Borderline high: 75-99 mg/dL High: >or= 100 mg/dL Ages 10 to 20 years Acceptable: <90 mg/dL Borderline high: 90-129 mg/dL High: >or= 130 mg/dL Ages > or = 20 years Desirable: <150 mg/dL Borderline high: 150-199 mg/dL High: 200-499 mg/dL Very high: >or= 499 mg/dL Literature References: 1. Expert Panel on Integrated Guidelines for Cardiovascular Health and Risk Reduction in Children and Adolescents. Pediatrics 2011;128:S213 2. NCEP Expert Panel. Circulation 2004;110:227 Current Interpretive Data was last revised on 2018. HDL 66 >=40 mg/dL [facility] Comment: Interpretive Data Ages < or = 19 years Acceptable: >45 mg/dL Borderline low: 40-45 mg/dL Low: <40 mg/dL Ages > or = 20 years Desirable: >or= 60 mg/dL Low: <40 mg/dL Literature References: 1. Expert Panel on Integrated Guidelines for Cardiovascular Health and Risk Reduction in Children and Adolescents. Pediatrics 2011;128:S213 2. NCEP Expert Panel. Circulation 2004;110:227 Current Interpretive Data was last revised on 2018. LDL, calculated 123 <=129 mg/dL [facility] Comment: Interpretive Data Ages < or = 19 years Acceptable: <110 mg/dL Borderline high: 110-129 mg/dL High: >or= 130 mg/dL Ages > or = 20 years Optimal: <100 mg/dL Near optimal: 100-129 mg/dL Borderline high: 130-159 mg/dL High: >160 mg/dL Calculated using the Suhail LDL-C estimating equation. This equation was implemented on 2024. Prior to this date LDL-C was estimated using the Friedewald equation. Literature References: 1. Expert Panel on Integrated Guidelines for Cardiovascular Health and Risk Reduction in Children and Adolescents. Pediatrics 2011;128:S213 2. NCEP Expert Panel. Circulation 2004;110:227 3. Suhail Hinton et al. ANA Cardiol. 2020 March 08;5(5):540-548. doi: 10.1001/jamacardio.2020.0013 Current Interpretive Data was last revised on 2024. Non-HDL Cholesterol 132 mg/dL [facility] Comment: Interpretive Data Ages < or = 19 years Acceptable: <120 mg/dL Borderline high: 120-144 mg/dL High: >145 mg/dL Ages > or = 20 years When triglycerides are >200 mg/dL, Non-HDL cholesterol is a secondary target of therapy with treatment goals that are 30 mg/dL greater than the LDL cholesterol target. Literature References: 1. Expert Panel on Integrated Guidelines for Cardiovascular Health and Risk Reduction in Children and Adolescents. Pediatrics 2011;128:S213 2. NCEP Expert Panel. Circulation 2004;110:227 Current Interpretive Data was last revised on 2018. Chol/HDL ratio 3 [facility] Blood 12/28/2024 9:29 AM HAND CLOTH EXAMINER 12/28/2024 2:44 PM HAND CLOTH EXAMINER Narrative [facility] - 12/28/2024 3:30 PM HAND CLOTH EXAMINER Has the patient been fasting for 8 hours or more?->No us Jacobo Resendiz MD LAB BLOOD ORDERABLES nal Result [facility] [address] [address] Department of Laboratories [place], [place] [id number] * Comprehensive metabolic panel (12/28/2024 9:29 AM HAND CLOTH EXAMINER) Sodium 139 135 - 145 mmol/L Potassium, pl 4.4 3.3 - 4.9 mmol/L [facility] Chloride 103 97 - 110 mmol/L [facility] CO2 26 22 - 32 mmol/L [facility] Anion gap 10 2 - 15 mmol/L [facility] BUN 13 6 - 25 mg/dL [facility] Creatinine 0.74 0.60 - 1.10 mg/dL [facility] Glucose 88 70 - 199 mg/dL [facility] Comment: Interpretive Data Fasting glucose >/= 126 mg/dl is diagnostic for diabetes. Fasting is defined as no caloric intake for at least 8 hours. Fasting glucose between 100 mg/dl to 125 mg/dl is diagnostic of prediabetes. In a patient with classic symptoms of hyperglycemia or hyperglycemic crisis, a random glucose >/= 200 mg/dl is diagnostic for diabetes. In the absence of unequivocal hyperglycemia, results should be confirmed by repeat testing. The classification and Diagnosis of Diabetes Diabetes Care 202; 46: S19-S40. Current interpretive data was last revised 2022. Calcium 9.5 8.5 - 10.3 mg/dL [facility] Bilirubin, total 0.2 0.1 - 1.2 mg/dL [facility] Protein, pl 7.6 6.5 - 8.5 g/dL [facility] Albumin 4.4 3.5 - 5.0 g/dL [facility] Alk phos 65 40 - 130 Units/L [facility] ALT 18 7 - 45 Units/L [facility] AST 30 10 - 45 Units/L [facility]
--- OUTSIDE RECORDS SUMMARY | 2025-03-23 00:58 | XMS_ITS | Clinical Summary ---
Author Organization [facility] Address [address] [place] [address] Care Team Providers Care Planning Specialist Name Role Phone Unavailable Primary Care Provider Unavailabl e Source Comments [facility],non-owned Affiliates and Associated Physician Practices is amultiple site organization consisting of ambulatory clinics and hospital sitesin [place], [place], [place] and [place]. This disclosure is being madepursuant to the Care Everywhere program and may not contain all information available regarding this patient. 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 Gender Identity Not on file Sexual Orientation Not on file Plan of Treatment Health Maintenance Due Date Last Done Comments BONE DENSITY TESTING 1950 COLOGUARD (AGES 45-75) - COL ON CA SCREENING 1950 COLON MONITORING 1950 COLONOSCOPY - COLON CA SCREENING 1950 CT COLONOGRAPHY - COLON CA SCREENING 1950 Colorectal Cancer Screening 1950 FIT - COLON CA SCREENING 1950 FLEX SIG - COLON CA SCREENING 1950 LIPID TESTING 1950 MAMMOGRAM 1950 HEPATITIS C SCREENING 11/07/1968 DTAP/TDAP/TD VACCINES (1 - Tdap) 1969 PNEUMOCOCCAL VACCINE 50+ (1 of 1 - PCV) 2000 ZOSTER VACCINE (1 of 2) 2000 COVID-19 VACCINE ( - 2023-2 5 season) 2024 DEPRESSION SCREENING 11/08/2024 INFLUENZA VACCINE (Season Ended) 2025 Respiratory Syncytial Virus (RSV) Vaccine Pt: or over 60 yrs (1 - 1-dose 75+ series) 2025 HEPATITIS B VACCINE Aged Out No longe r eligible based on patient's age to complete this topic HIB VACCINE Aged Out No longer eligi ble based on patient's age to complete this topic HPV VACCINE Aged Out No longer eligi ble based on patient's age to complete this topic MENINGOCOCCAL (Group B) VACC INE SHARED DECISION-MAKING Aged Out No longer eligibl e based on patient's age to complete this topic MENINGOCOCCAL GROUPS A/C/Y/W VACCINE Aged Out No longer eligible b ased on patient's age to complete this topic
--- OUTSIDE RECORDS SUMMARY | 2025-03-23 00:58 | XMS_ITS | Continuity of Care Document ---
Author Organization [facility] Address [address] [place] [address] [place] [phone] Phone Care Team Providers Care Liaison Planner Name Role Phone Radha MS, OTR/L, CHT, Melly Unavailable Unavailable Procedures Procedure Date No Charge Splint Adjustment Carrying, Moving And Handling Objects-Cu rrent Carrying, Moving And Handling Objects-Go al Carrying, Moving And Handling Objects-Di scharge Figure 8 Casey Neck Carrying, Moving And Handling Objects-Cu rrent Carrying, Moving And Handling Objects-Go al Carrying, Moving And Handling Objects-Di scharge Short Opponens Hand based Progress Note THERAPEUTIC EXERCISES MANUAL THERAPY FUNC ACTIVITY HOT/COLD PACK Carrying, Moving And Handling Objects-Di scharge Carrying, Moving And Handling Objects-Go al THERAPEUTIC EXERCISES MANUAL THERAPY FUNC ACTIVITY HOT/COLD PACK THERAPEUTIC EXERCISES MANUAL THERAPY FUNC ACTIVITY HOT/COLD PACK THERAPEUTIC EXERCISES NEUROMUSCULAR RE-ED MANUAL THERAPY FUNC ACTIVITY HOT/COLD PACK Progress Note THERAPEUTIC EXERCISES MANUAL THERAPY FUNC ACTIVITY HOT/COLD PACK Carrying, Moving And Handling Objects-Cu rrent Carrying, Moving And Handling Objects-Go al THERAPEUTIC EXERCISES MANUAL THERAPY FUNC ACTIVITY HOT/COLD PACK THERAPEUTIC EXERCISES MANUAL THERAPY FUNC ACTIVITY HOT/COLD PACK Theraputty THERAPEUTIC EXERCISES MANUAL THERAPY FUNC ACTIVITY HOT/COLD PACK OT Evaluation Low Complexity THERAPEUTIC EXERCISES FUNC ACTIVITY HOT/COLD PACK Carrying, Moving And Handling Objects-Cu rrent Carrying, Moving And Handling Objects-Go al Medications Name Dose Freq Route DOC Nov Pain Assess Positive DOC 2016 BMI Above/Below Normal Parameters NO F/U Plan DOC Future Fall Risk Positive 2+ Falls or 1 Fall w/ Injury RA DOC Scre ened for Fall Risk Plan of Care DOC Functional Outcome Assessmen t documented, deficits identified, treatment plan es Pt inelig neg scrn depres TOBACCO NON-USER Doc neg elder mal no plan Advance Directives Directive Yes / No Effective Date File Name No Information Encounters Encounter Description Practice Location Reason(s) For Visit Diagnoses Date Provider Providers Copied on Encounter [facility], [place], [place], [id number], [place] tel:[phone] Arbon No Information 3201 7 Pbvanejose rafael Pickard. [address] [address] [facility] [address], [address], [place], [address], [place]. tel:[phone] [facility], [place], [place], [id number], [place] tel:[phone] Henry No Information 7 Radha Pickard. [address] [place] [address], [address], [place], [place], [facility], [place]. tel:[phone] Referring Provider: Chino Bergeron, [address] , [place], [address]. tel:[phone] [facility], [place], [place], [id number], [place] tel:[phone] Henry Ot symptoms and signs involving the musculoskeletal systemSprain of metacarpophalan geal joint of right thumb, subs 7 Terra Renteria. . Referring Provider: Chino Bergeron, [address] , [place], [address]. tel:[phone] [facility] [address], [place], [place], [id number], [place] tel:[phone] Arbon Unsp injury of right wrist, hand and finger(s), subs encntr 7 Radha Pickard. [address] [place] [address], [address], [place], [place], [facility], [place]. tel:[phone] [facility], [id number], [place] tel:[phone] Henry No Information 7 Radha Pickard. [address] [place] [address], [address], [place], [address], [place]. tel:[phone] [facility] [address], [place], [place], [id number], [place] tel:[phone] Arbon No Information 7 Radha Pickard. [address] [place] [address], [address], [place], [address], [place]. tel:[phone] [facility] [address], [place], [place], [id number], [place] tel:[phone] Arbon No Information Dec-2 8 7 Hauschild Melly. [address] [place] [address], [address], [place], [address], [place]. tel:[phone] [facility], [address], [place], [place], [id number], [place] tel:[phone] Arbon No Information Dec-2 7 Hauschild Melly. [address] [place] [address], [address], [place], [address], [place]. tel:[phone] [facility] [address], [place], [place], [id number], [place] tel:[phone] Arbon Muscle weakness (generalized) b-2 7 Hauschild Melly. [address] [place] [address], [address], [place], [address], [place]. tel:[phone] [facility] [address], [place], [place], [address], [place] tel:[phone] Arbon No Information 7 Hauschild Melly. [address] [place] [address], [address], [place], [address], [place]. tel:[phone] [place] [address], [place], [place], [address], [place] tel:[phone] Arbon No Information Dec-0 7 7 Haus[place] Melly. [address] [place] [address], [address], [place], [address], [place]. tel:[phone] [place] [address], [place], [place], [address], [place] tel:[phone] Arbon No Information 1- 7 Haus[place] Melly. [address] [place] [address], [address], [place], [address], [place]. tel:[phone] [facility], [place], [place], [id number], [place] tel:[phone] Henry Pain in right finger(s)Stiffn ess of right hand, not elsewhere classifiedEffus ion, right handFx unsp phalanx of right thumb, subs for fx w routn healSubluxation of MCP joint of right thumb, subs 7 Radha Pickard. [address] [facility], [address], [place], [address], [place]. tel:[phone] Family History Family Member Type Diagnosis Age At Onset No Information Payers Payer name Insurance type Covered alliance party ID Authoriza tialbaro(s) Medicare [place] [id number] Social History Type Description Quantity Date Captured Comments Sex Female Smoking Status No Information Chief Complaint And Reason For Visit No Information Reason For Referral Reason For Referral No Information History Of Present Illness Encounter Date Complaint History Of Prese nt Illness No Information Functional Status Date Functional Assessmen t No Information Instructions Date Instruction Additional Infor mation No Information Assessments Type Assessment Date No Information Patient Care Teams Name Effective Dates (start - stop) Status Members No Information
--- OUTSIDE RECORDS SUMMARY | 2025-03-23 00:58 | XMS_ITS | Clinical Summary ---
Author Organization [facility] Address [facility] [place] [address] Care Team Providers Care Blow Torch Operator Name Role Phone Tone Rebolledo MD Primary Care Provider [phone] Family History Medical History Relation Comments Breast Cancer Mother Breast Cancer Sister Relation Status Comments Mother Sister Social History Tobacco Use Types Packs/Day Years Used Date Smoking Tobacco: Never Assessed Comments Unknown Sex and Gender Information Value Date Recorded Sex Assigned at Not on file Legal Sex Female 8:16 PM CDT Gender Identity Not on file Sexual Orientation Not on file Plan of Treatment Health Maintenance Due Date Last Done Comments Colorectal Cancer Screening Colonoscopy (10 Years) 1950 Hepatitis C 1968 Annual Medicare Wellness Visit 2015 Dexa Scan (General) 2015 Zoster Vaccines (3 of 3) 10/12/2019 08/17/2019, 02/2017 COVID-19 Vaccine ( season) 2024 12/20/2020, 11/21/2020 Mammogram Screening 03/22/2025 03/22/2023, 03/16/2022, 02/28/2021, Additional history exists RSV Immunization or 60+ Years (1 - 1-dose 75+ series) 2025 DTaP, Tdap and Td Vaccines (2 - Td or Tdap) 12/01/2031 12/01/2021 Pneumococcal Vaccine: 50+ Years Completed 11/15/2017, 09/27/2016 Meningococcal B Vaccine Aged Out No l onger eligible based on patient's age to complete this topic Meningococcal Vaccine Aged Out No idania marie eligible based on patient's age to complete this topic RSV Immunizations Under 20 Months Aged Out No longer eligible based on patient's age to complete this topic Procedures Procedure Name Priority Date/Time Associated Diagnosis Comments MG SCREENING W DILEEP ANIRUDH DIGI Routine 03/22/2023 9:21 AM CDT Encounter for screening mammogram for malignant neoplasm of breast from Last 3 Months or Most Recently Relevant to Health Maintenance Results * MG SCREENING W DILEEP ANIRUDH DIGI (03/22/2023 9:21 AM CDT) Anatomical Region Laterality Modality Breast Bilateral Radiographic Denise ging 03/24/2023 7:38 AM CDT Narrative 03/24/2023 7:41 AM CDT EXAMINATION: BILATERAL SCREENING MAMMOGRAPHY Exam Date: 03/22/2023 9:00 AM CLINICAL INDICATION: 72 years of age female routine screening. Reported benign right surgical biopsy 1974. Sister diagnosed breast cancer age 65 and mother diagnosed at age 90. COMPARISON: Screening mammogram(s) 03/29, 02/26, 09/26 TECHNIQUE: Digital CC & MLO views. Tomosynthesis imaging acquisition Study read with the assistance of a computer-aided detection system. TISSUE DENSITY: The breast tissue is heterogeneously dense, which may obscure small masses. FINDINGS: Few punctate scattered calcifications. Stable subcentimeter reniform nodule with appearance of a benign morphology lymph node. No suspicious grouping of microcalcifications, new unexpected distortion, or new dominant suspicious nodule 3 dimensionally demonstrated in either breast. IMPRESSION: No interval features to suggest malignancy. In the absence of clinical symptoms, return for annual screening mammogram due in 1 year. RECOMMENDATION: Routine Screening, Bilateral in 1 year ASSESSMENT: ACR BI-RADS 2 - BENIGN FINDING(S) Ordered By: LEON MOONEY Interpreted By: Halley Ramirez MD, 03/24/2023 7:38 AM us Leon Mooney MD MAMMO Final Result from Last 3 Months or Most Recently Relevant to Health Maintenance Insurance [facility] Care Teams Blow Torch Operator Relationship Specialty Start Date End Date Tone Rebolledo MD [address] [place] [id number] PCP - General FAMILY PRACTICE 09/22/19
[2025-03-23 11:19] VITALS: BP 108/68; PULSE 79; RESP 16; TEMP 36.2; O2SAT 96
[2025-03-23] MEDS: LACTATED RINGERS 1,000 ML 150 ML IV CONT (11:32)
--- NOTE | 2025-03-23 11:36 | P.PNAN_ITS ---
Anes - Initial Pre Proc Eval Procedure: Operation Date: 03/23/25 12:30 Proposed Procedures p Screening Colonoscopy - Bereket Lees MD Date/Time: 03/23/25 11:36 Surgeon: Bereket Lees MD Pre Op Diagnosis: Screening Patient Data Age: 74 Gender: F Height: 1.63 m Weight: 63 kg Last Vital Signs Temp 36.2 C L 03/23/25 11:19 Pulse 79 03/23/25 11:19 Resp 16 03/23/25 11:19 BP 108/68 03/23/25 11:19 Pulse Ox 96 03/23/25 11:19 O2 Del Method Room Air 03/23/25 11:19 Allergies Allergy/AdvReac Type Severity Reaction Status Date / Time nalidixic acid Allergy Mild Unknown Verified 03/23/25 11:16 Sulfa (Sulfonamide Allergy Unknown Unknown Verified 03/23/25 11:16 Antibiotics) Home Medications Medication Instructions Recorded Confirmed Type calcium carbonate (Calcium 600) 600 mg PO DAILY 12/11/19 03/23/25 History cholecalciferol (vitamin D3) 50 2,000 unit PO DAILY 12/11/19 03/23/25 History mcg (2,000 unit) tablet estradiol 0.01% (0.1 mg/gram) See Rx Instructions vaginal 11/04/22 03/16/25 Rx vaginal cream (Estrace) .COMPLEX #42.5 grams zoledronic acid 5 mg/100 mL in ea IV 03/23/25 History mannitol 5 %-water intravenous piggybck (Reclast) Patient hx anesthesia problems: none Family hx anesthesia problems: none Results Review: All pre-operative results and documents have been reviewed as part of the pre- operative evaluation. [facility] Past Medical History Medical History History of vaginal delivery Normal colonoscopy Osteopenia Surgical History Surgical History Status post breast lump removal History of right oophorectomy Family History Family History Mother Family history of malignant neoplasm of breast in first degree relative Other Carcinoma of colon Social History Social History Smoking packs per day: 0.5 Smoking cigarettes per day: 10.0 Smoking status: Former smoker Tobacco type: cigarettes Alcohol intake: current Drinks per week: 4 Substance use: never Substance use type: does not use Lack of Transportation: No Lack of Food: Never True Current Housing: I Have Housing Concerned About Future Housing: No Difficulty Paying Gas/Electric Bills: No Difficulty Paying for Meds: No Currently Unemployed: No Education: Master's Degree or Higher Difficulty w/ Childcare or Family Care: No Living arrangements: with family Spiritual care concerns: No Anes - Eval Final PreProcedure Day of Procedure 03/23/25 11:36 Patient weight: normal Heart: regular rate and rhythm Lungs: clear to auscultation Airway: Mallampati scale class II Neurological: alert and oriented Last oral intake: >/= 8 hours ASA classification: II Emergent: no Anesthetic plan: proceed Anesthesia type and monitoring: general GIVS and standard monitoring Results Review: All pre-operative results and documents have been reviewed as part of the pre- operative evaluation. Informed Consent: The patient's anesthetic plan and its attendant risks and benefits were discussed with the patient/family/POA. Questions were solicited and answers provided to the satisfaction of the patient/family/POA.
--- NOTE | 2025-03-23 11:49 | PM.IMHP ---
H&P: HPI History of Present Illness Date/Time: 03/23/25 11:49 Chief Complaint: History of colon polyps Narrative: The patient has a history of colonic polyps, the last colonoscopy was 3 years ago, were a large polyp was removed. She is asymptomatic from a GI standpoint and has no family history of colorectal cancer except for a paternal aunt who had Colon cancer when she was 80 years old. Review of Systems Review of Systems: All systems reviewed & are unremarkable except as noted in HPI and below PMFSH Past Medical History Medical History History of vaginal delivery Normal colonoscopy Osteopenia Surgical History Surgical History Status post breast lump removal History of right oophorectomy Family History Family History Mother Family history of malignant neoplasm of breast in first degree relative Other Carcinoma of colon Social History Social History Smoking packs per day: 0.5 Smoking cigarettes per day: 10.0 Smoking status: Former smoker Tobacco type: cigarettes Alcohol intake: current Drinks per week: 4 Substance use: never Substance use type: does not use Lack of Transportation: No Lack of Food: Never True Current Housing: I Have Housing Concerned About Future Housing: No Difficulty Paying Gas/Electric Bills: No Difficulty Paying for Meds: No Currently Unemployed: No Education: Master's Degree or Higher Difficulty w/ Childcare or Family Care: No Living arrangements: with family Spiritual care concerns: No Meds Home Medications and Allergies Home Medications Medication Instructions Recorded Confirmed Type calcium carbonate (Calcium 600) 600 mg PO DAILY 12/11/19 03/23/25 History cholecalciferol (vitamin D3) 50 2,000 unit PO DAILY 12/11/19 03/23/25 History mcg (2,000 unit) tablet estradiol 0.01% (0.1 mg/gram) See Rx Instructions vaginal 11/04/22 03/16/25 Rx vaginal cream (Estrace) .COMPLEX #42.5 grams zoledronic acid 5 mg/100 mL in ea IV 03/23/25 History mannitol 5 %-water intravenous piggybck (Reclast) Allergies Allergy/AdvReac Type Severity Reaction Status Date / Time nalidixic acid Allergy Mild Unknown Verified 03/23/25 11:16 Sulfa (Sulfonamide Allergy Unknown Unknown Verified 03/23/25 11:16 Antibiotics) Vital Signs Vital Signs - 24 hr 03/23/25 11:19 Temperature 97.2 F L Pulse Rate 79 Respiratory Rate 16 Blood Pressure 108/68 Pulse Oximetry 96 Oxygen Delivery Room Air Exam Const: General: cooperative and healthy appearing Resp: Effort & Inspection: normal respiratory effort and able to speak in complete sentences Auscultation: clear to auscultation bilaterally Cardio: Rate: regular rate Rhythm: regular rhythm GI: Inspection: normal to inspection GI Palp: No No hepatosplenomegaly present Auscultation: normal bowel sounds Rectal Exam: deferred Skin: General skin exam: normal color Psych: Appearance: grossly normal Mental Status: mental status grossly normal Assessment and Plan Assessment and plan (1) History of colonic polyps: Code(s): Z86.0100 - Personal history of colon polyps, unspecified Status: Acute Assessment and Plan: The patient is deemed a good candidate for the procedure. Consent signed. Will proceed.
[2025-03-23 12:35] VITALS: BP 98/58; PULSE 55; RESP 20; O2SAT 97
[2025-03-23 12:45] VITALS: BP 107/43; PULSE 58; RESP 22; O2SAT 99
[2025-03-23 12:55] VITALS: BP 101/53; PULSE 54; RESP 16; O2SAT 100
== END 2025-03-23 13:10 | disposition home or self-care (01) ==
PROVIDERS: PCP Family Medicine; Referring Provider Family Medicine; Visit Provider Internal Medicine Gastroenterology
PROC: 0DJD8ZZ Inspection of Lower Intestinal Tract, Via Natural or Artificial Opening Endoscopic (ICD-10-PCS; CPT 45378; principal; 2025-03-23 12:30)
DX: Z12.11 Encounter for screening for malignant neoplasm of colon (principal); D12.3 Benign neoplasm of transverse colon; Z87.891 Personal history of nicotine dependence
CPT/HCPCS: 45385; 88305; J2003; J2704; J7120